=== PATIENT | female | born 1965 | race Caucasian/White ===

== ENCOUNTER 2016-10-04 12:20 | Emergency (ER) | payer MEDICAID ==
[~2016-10-04] VITALS: Ht 165.1 cm; Wt 52.2 kg
[2016-10-04 12:33] VITALS: BP 137/72
[2016-10-04] MEDS ORDERED: KETOROLAC TROMETHAMINE INJ 30 MG/ML VIAL IM ONE (13:00)
[2016-10-04] MEDS ORDERED: KETOROLAC TROMETHAMINE INJ 30 MG/ML VIAL ONE (13:08)
== END 2016-10-04 13:35 | disposition home or self-care (01) ==
LOC: ER 12:22
DX: M54.12 Radiculopathy, cervical region (principal); F32.9 Major depressive disorder, single episode, unspecified
CPT/HCPCS: 96372; 99283; A4606; J1885; Z7610